=== PATIENT | female | born 1970 | race Caucasian/White ===

== ENCOUNTER → 2016-08-10 | Outpatient (CLI) | payer BC ==
[~2016-08-10] MED LIST: ASPI81TA28 PO; CHOL100010 PO; CRAN1TAB PO; DILTIAZEM PO; INSPMPHMLG; LEVO1TAB PO; LISI-729 PO; MAGN400T6 PO; METF1TAB53 PO; MULT-506 PO; OLME1TAB11 PO; OMEG10007 PO; PRAV20TA PO
--- NOTE | 2016-08-11 13:31 | MAMMOGRAPHY REPORT ---
BILATERAL DIGITAL SCREENING MAMMOGRAM TOMOSYNTHESIS WITH CAD: 08/10/2016 CLINICAL HISTORY: Routine screening. Patient has no complaints. TECHNIQUE: Breast tomosynthesis in addition to standard 2D mammography was performed. Current study was also evaluated with a Computer Aided Detection (CAD) system. COMPARISON: Comparison is made to exams dated: 08/03/2015 mammogram, 07/01/2014 mammogram, and 013 mammogram - [facility]. BREAST COMPOSITION: There are scattered areas of fibroglandular density in both breasts. FINDINGS: No suspicious masses, calcifications, or areas of architectural distortion are noted in e ither breast. There has been no significant interval change compared to prior exams. IMPRESSION: ACR BI-RADS CATEGORY 1: NEGATIVE There is no mammographic evidence of malignancy. A 1 year screening mammogram is recommended. The p atient will receive written notification of the results. Approximately 10% of breast cancers are not detected with mammography. A negative mammographic repor t should not delay biopsy if a clinically suggestive mass is present. Gloria Minor M.D. ah/:08/10/2016 16:26:01 Data Analytics Specialist: Mey LEWIS(Cristhian)(M)(BD), [facility] letter sent: Normal /2 BI-RADS Code: ACR BI-RADS Category 1: Negative
== END | disposition home or self-care (01) ==
LOC: C.MAMM 16:00
PROVIDERS: ATTEND Nurse Practitioner Family
DX: Z12.31 Encounter for screening mammogram for malignant neoplasm of breast (principal)

== ENCOUNTER → 2016-08-31 | Outpatient (CLI) | payer BC ==
[~2016-08-31] MED LIST changes: +CHOL1000 PO; +DILT120C68 PO; +LEVO137T3 PO; +ROSU5TAB PO; +SERT50TA PO; +UBIQ100C PO
== END | disposition home or self-care (01) ==
LOC: C.PAPS 11:13
PROVIDERS: ATTEND Physician Assistant
DX: Z01.419 Encounter for gynecological examination (general) (routine) without abnormal findings (principal)

== ENCOUNTER → 2017-05-15 | Day surgery (SDC) | payer BC ==
[2017-04-19 11:55] VITALS: Ht 170.2 cm; Wt 97.7 kg
[~2017-05-15] VITALS: Ht 170.2 cm; Wt 97.7 kg
[~2017-05-15] MED LIST changes: +ATROPINE SULFATE 0.1 MG/ML 5ML SYR IV PRN; +BUPIVACAINE 0.5 % 5 MG/1 ML PF 10ML VIAL ONE; +CEFAZOLIN 2000MG IV PUSH 10 ML IV SCH; -CHOL100010 PO; -CRAN1TAB PO; -DILTIAZEM PO; +EpHEDrine SULFATE INJ 50 MG/ML AMP IV PRN; +FENTANYL CITRATE INJ 50 MCG/1 ML 2 ML VIAL IV PRN; +FENTANYL CITRATE INJ 50 MCG/1 ML 2 ML VIAL ONE; +LACTATED RINGER'S 1000ML 1,000 ML IV SCH; -LEVO1TAB PO; +LIDOCAINE HCL 1% 20 ML VIAL ONE; +LIDOCAINE HCL 2% 2 ML VIAL (20MG/ML) ONE; -LISI-729 PO; +MIDAZOLAM HCL 1 MG/ML 2ML VIAL ONE; -OMEG10007 PO; +ONDANSETRON INJ 2 MG/ML 2 ML VIAL IV PRN; +OXYCODONE/ACETAMINOPHEN 5-325 TAB PO PRN; -PRAV20TA PO; +PROMETHAZINE HCL INJ 6.25 MG in SODIUM CHLORIDE 0.9% 50ML 50 ML IV PRN; +PROPOFOL IV EMULSION 10 MG/ML 20 ML VIAL IV ONE; +SODIUM CHLORIDE 0.9% 1000ML 1,000 ML IV SCH; +TRAM-10 PO
--- NOTE | 2017-05-15 06:45 | History & Physical Bridge - SC ---
H&P Re-Evaluation Bridge Note: I have examined the patient, reviewed the History & Physical and in the interval since the performance of the History & Physical I have noted the following changes of clinical significance: No changes noted
--- NOTE | 2017-05-15 07:14 | [facility] Post Operative Brief Note ---
Immediate Operative Summary Operative Date May 15, 2017. Pre-Operative Diagnosis Left Index and Long Trigger Fingers Post-Operative Diagnosis Same Procedure(s) Performed Left Index And Long Fingers Trigger Fingers Release Surgeon Dr. Watt Safe Technician Surgeon(s) Richard Branch PA-C Estimated Blood Loss 0ml Findings ABOVE Specimens None Anesthesia LOCAL IV SEDATION Complication(s) None Disposition
[2017-05-15 07:16] VITALS: TEMP 36.7
--- NOTE | 2017-05-15 07:18 | Discharge Instructions-SurgCtr ---
Discharge Instructions Date of Service May 15, 2017. Visit Reason for Visit: Left Index And Long Trigger Fingers Discharge Discharge Diagnosis / Problem: SAME ABOVE Discharge Goals Goal(s): Decrease discomfort, Improve function Medications Stopped Medications Name(s): Aspirin and Metformin stopped 05/10 Activity Recommendations Activity Limitations: as noted below Lifting Limitations: gradually increase as tolerated Exercise/Sports Limitations: until after follow-up appointment Shower/Bathe: tomorrow Anesthesia . Post Anesthesia Instructions: If you have had General Anesthesia or IV Sedation: * Do not drive today. * Resume driving when surgeon permits. * Do not make important decisions or sign legal documents today. * Call surgeon for: 1. Temperature elevations greater than 101 degrees F. 2. Uncontrollable pain. 3. Excessive bleeding. 4. Persistent nausea and vomiting. 5. Medication intolerance (nausea, vomiting or rash). * For nausea and vomiting use only clear liquids such as: tea, soda, bouillon until nausea subsides, then gradually increase diet as tolerated. * If you have any concerns or questions, call your surgeon's office. If physician is unavailable and it is an emergency, call 911 or go to the nearest emergency room. . Diet Recommendations Home Diet: resume previous diet Procedures Procedures Performed: Left Index And Long Fingers Trigger Fingers Release Pending Studies Studies pending at discharge: no Medical Emergencies . Who to Call and When: Medical Emergencies: If at any time you feel your situation is an emergency, please call 911 immediately. . Non-Emergent Contact Non-Emergency issues call your: Primary Care Provider . . "Provider Documentation" section prepared by Deric Branch. .
--- NOTE | 2017-05-15 07:33 | OPERATIVE REPORT ---
DATE OF OPERATION: 05/15/2017 PREOPERATIVE DIAGNOSIS: Left index and long trigger finger. POSTOPERATIVE DIAGNOSIS: Same. PROCEDURE: Release A1 pulleys left index and long fingers. SURGEON: Lane Watt MD. NURSE INFECTION CONTROL: Deric Branch PA-C. ANESTHESIOLOGIST: Deric Dennison MD. ANESTHESIA: Local with IV sedation. DRAINS: None. COMPLICATIONS: None. CONDITION: The patient tolerated the procedure well and returned to the recovery room in apparent satisfactory condition. INDICATIONS FOR SURGERY: Dalila is a 46-year-old female with triggering of left index, long fingers on conservative care. We went over treatment options and elected to go ahead and proceed with surgery. Procedure, expected outcomes and side effects, and risks were all explained in detail. DESCRIPTION OF PROCEDURE: The patient was taken to the OR at which time she was placed supine on the operating table, given IV sedation by the anesthesia department. Left hand was prepped and draped in usual sterile fashion for surgery. We infiltrated the anticipated incision sites on the index and long fingers over the A1 jagdeep with 1% Xylocaine and put a forearm tourniquet up to 250 mmHg. Using loupe magnification, we made transverse incisions over both pulleys A1 jagdeep was dissected down with tenotomy scissors and divided the A1 jagdeep with an 11 blade and tenotomy scissors. Each finger was taken through a range of motion of longer triggering. Each wound was irrigated and closed with interrupted 4-0 nylon sutures. Marcaine without epinephrine was placed in skin edges. Placed a sterile dressing of Xeroform, 4 x 4, soft roll and Coban and returned back to recovery room in apparent satisfactory condition. I attest to the content of the Intraoperative Record and any orders documented therein. Any exception s are noted below.
[2017-05-15 07:45] VITALS: BP 119/73; O2SAT 94
--- NOTE | 2017-05-15 07:45 | Discharge Instructions-SurgCtr ---
Discharge Instructions Date of Service May 15, 2017. Visit Reason for Visit: Left Index And Long Trigger Fingers Discharge Discharge Diagnosis / Problem: SAME ABOVE Discharge Goals Goal(s): Decrease discomfort, Improve function Medications Stopped Medications Name(s): Aspirin and Metformin stopped 05/10 Activity Recommendations Activity Limitations: as noted below Lifting Limitations: gradually increase as tolerated Exercise/Sports Limitations: until after follow-up appointment Shower/Bathe: tomorrow Anesthesia . Post Anesthesia Instructions: If you have had General Anesthesia or IV Sedation: * Do not drive today. * Resume driving when surgeon permits. * Do not make important decisions or sign legal documents today. * Call surgeon for: 1. Temperature elevations greater than 101 degrees F. 2. Uncontrollable pain. 3. Excessive bleeding. 4. Persistent nausea and vomiting. 5. Medication intolerance (nausea, vomiting or rash). * For nausea and vomiting use only clear liquids such as: tea, soda, bouillon until nausea subsides, then gradually increase diet as tolerated. * If you have any concerns or questions, call your surgeon's office. If physician is unavailable and it is an emergency, call 911 or go to the nearest emergency room. . Instructions / Follow-Up Instructions / Follow-Up MEDICATIONS: * Resume previous medications unless instructed otherwise by your surgeon. * Always take pain medication on a full stomach or with food to avoid upset stomach. * Do not drink alcohol or drive while taking narcotics. * Ibuprofen or Tylenol may be taken if narcotic not needed. SPECIAL CARE INSTRUCTIONS: __ None _X_ Keep extremity elevated and iced x 48 hours; apply ice 20-30 minutes 8-10 times/day. May remove at night. __ Sling __24 hrs/day __ Remove at night __ Shoulder Immobilizer __ 24 hrs/day __ Remove at night _X_ Dressing __ Maintain until seen in office, may shower with plastic over site _X_ Remove dressings in 24-48 hours and then may shower _X_ Cover incisions with band-aids after showering __ Do not remove steri-strips Call physician if chills or temperature rises above 102 degrees or pain unrelieved by prescribed pain medications at . . Diet Recommendations Home Diet: no limitations Procedures Procedures Performed: Left Index And Long Fingers Trigger Fingers Release Pending Studies Studies pending at discharge: no Medical Emergencies . Who to Call and When: Medical Emergencies: If at any time you feel your situation is an emergency, please call 911 immediately. . Non-Emergent Contact Non-Emergency issues call your: Primary Care Provider . . "Provider Documentation" section prepared by Deric Branch. .
--- NOTE | 2017-05-15 07:47 | Anesthesia Progress Nt - [facility] ---
Anesthesia Post Op Note Date & Time May 15, 2017 at 07:47 Vital Signs Pain Intensity: 0 Vital Signs Past 12 Hours Date Time Temp Pulse Resp B/P (MAP) Pulse Ox O2 Delivery O2 Flow Rate FiO2 05/15/17 07:45 16 119/73 (88) 94 Room Air 05/15/17 07:16 36.7 86 16 127/84 (98) 98 Room Air 05/15/17 06:28 36.7 86 16 127/84 (98) 98 Room Air Notes Mental Status: alert / awake / arousable, participated in evaluation Pt Amnestic to Procedure: Yes Nausea / Vomiting: adequately controlled Pain: adequately controlled Airway Patency, RR, SpO2: stable & adequate BP & HR: stable & adequate Hydration State: stable & adequate Anesthetic Complications: no major complications apparent
== END | disposition home or self-care (01) ==
LOC: X.SURG 06:09
PROVIDERS: ATTEND Orthopaedic Surgery
DX: M65.322 Trigger finger, left index finger (principal); M65.332 Trigger finger, left middle finger; Z90.710 Acquired absence of both cervix and uterus; E10.9 Type 1 diabetes mellitus without complications; E03.9 Hypothyroidism, unspecified; I10 Essential (primary) hypertension; E78.00 Pure hypercholesterolemia, unspecified; Z79.4 Long term (current) use of insulin; K21.9 Gastro-esophageal reflux disease without esophagitis; Z79.82 Long term (current) use of aspirin; Z90.722 Acquired absence of ovaries, bilateral; M19.90 Unspecified osteoarthritis, unspecified site; R00.0 Tachycardia, unspecified; F41.9 Anxiety disorder, unspecified

== ENCOUNTER → 2017-08-14 | Outpatient (CLI) | payer BC ==
[~2017-08-14] MED LIST changes: -ATROPINE SULFATE 0.1 MG/ML 5ML SYR IV PRN; +BNC/20 PO; -BUPIVACAINE 0.5 % 5 MG/1 ML PF 10ML VIAL ONE; -CEFAZOLIN 2000MG IV PUSH 10 ML IV SCH; -EpHEDrine SULFATE INJ 50 MG/ML AMP IV PRN; -FENTANYL CITRATE INJ 50 MCG/1 ML 2 ML VIAL IV PRN; -FENTANYL CITRATE INJ 50 MCG/1 ML 2 ML VIAL ONE; -LACTATED RINGER'S 1000ML 1,000 ML IV SCH; -LIDOCAINE HCL 1% 20 ML VIAL ONE; -LIDOCAINE HCL 2% 2 ML VIAL (20MG/ML) ONE; -MIDAZOLAM HCL 1 MG/ML 2ML VIAL ONE; -OLME1TAB11 PO; -ONDANSETRON INJ 2 MG/ML 2 ML VIAL IV PRN; -OXYCODONE/ACETAMINOPHEN 5-325 TAB PO PRN; -PROMETHAZINE HCL INJ 6.25 MG in SODIUM CHLORIDE 0.9% 50ML 50 ML IV PRN; -PROPOFOL IV EMULSION 10 MG/ML 20 ML VIAL IV ONE; -SODIUM CHLORIDE 0.9% 1000ML 1,000 ML IV SCH
--- NOTE | 2017-08-15 15:36 | MAMMOGRAPHY REPORT ---
BILATERAL DIGITAL SCREENING MAMMOGRAM TOMOSYNTHESIS WITH CAD: 08/14/2017 CLINICAL HISTORY: Routine screening. Patient has no complaints. TECHNIQUE: Breast tomosynthesis in addition to standard 2D mammography was performed. Current study was also evaluated with a Computer Aided Detection (CAD) system. COMPARISON: Comparison is made to exams dated: 08/10/2016 mammogram, 08/03/2015 mammogram, 07/01/2014 [facility] mogram, 04/23/2013 mammogram - [facility], and [facility] BREAST COMPOSITION: There are scattered areas of fibroglandular density in both breasts. FINDINGS: The parenchymal pattern is unchanged. No developing mass, architectural distortion or clus ter of suspicious microcalcifications is seen in either breast. IMPRESSION: ACR BI-RADS CATEGORY 2: BENIGN There is no mammographic evidence of malignancy. A 1 year screening mammogram is recommended. The pa tient will receive written notification of the results. Approximately 10% of breast cancers are not detected with mammography. A negative mammographic report should not delay biopsy if a clinically suggestive mass is present. Sabine Dhillon M.D. ay/:08/14/2017 16:59:04 Admittance Attendant: Reina LEWIS(Cristhian)(M), [facility] letter sent: Normal 1/2 BI-RADS Code: ACR BI-RADS Category 2: Benign
== END | disposition home or self-care (01) ==
LOC: C.MAMM 16:09
PROVIDERS: ATTEND Nurse Practitioner Family
DX: Z12.31 Encounter for screening mammogram for malignant neoplasm of breast (principal)

== ENCOUNTER 2017-10-11 04:18 | Emergency (ER) | payer BC ==
[~2017-10-11] VITALS: Ht 167.6 cm; Wt 98.0 kg
[2017-10-11 04:20] VITALS: TEMP 36.7; Ht 167.6 cm; Wt 98.0 kg
[2017-10-11] MEDS ORDERED: SODIUM CHLORIDE 0.9% 1000ML 1,000 ML IV STA (04:29)
[2017-10-11 04:38] LABS: BASO % 0.1 %; BASO ABS # 0.01 K/uL (0-0.2); EOS % 2.2 %; EOS ABS # 0.15 K/uL (0-0.5); HEMATOCRIT 42.1 % (37-47); HEMOGLOBIN 13.9 g/dL (12.0-16.0); IG# 0.02 K/uL (0.00-0.02); MEAN CELL VOLUME 85.7 fL (80-100); MEAN CORPUSCULAR HEMOGLOBIN 28.3 pg (25-34); MEAN PLATELET VOLUME 10.3 fL (7.4-10.4); MONO % 7.5 %; MONO ABS # 0.52 K/uL (0.11-0.59); NEUT % 60.9 %; NEUT ABS # 4.19 K/uL (1.4-6.5); PLATELET COUNT 310 K/uL (130-400); RED CELL DISTRIBUTION WIDTH SD 40.8 fL (36.4-46.3); WHITE BLOOD COUNT 6.89 K/uL (4.8-10.8)
--- NOTE | 2017-10-11 04:38 | EMERGENCY ROOM VISIT NOTE ---
History Report prepared by Jerri: Alta Lees Under the Supervision of: Dr. Gregorio Perez M.D. First contact with patient: 04:22 Chief Complaint: PALPITATIONS Stated Complaint: PALPITATIONS Nursing Triage Summary: 0300 woke up with shortness of breath and palpitations History of Present Illness The patient is a 47 year old female who presents to the Emergency Room with complaints of resolved heart palpitations that started an hour and a half ago. The patient states "my heart felt like it was trying to leave my body, it was beating really fast." She reports she was unable to get a full breath but denies any shortness of breath. Per EMS, the patient was hypertensive on arrival. The patient reports she had one episode of tachycardia 4 years ago during her hysterectomy. She denies chest pain, calf pain, leg swelling, abdominal pain, diarrhea, or urine symptoms. The patient has type I diabetes, thyroid issues, and magnesium issues. She reports she has no history of DKA, blood clots, fluid on lungs, or kidney failure. 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 She also denies any change in exercise. Source of History: patient Onset: hour and a half ago Position: other (heart) Timing: resolved Associated Symptoms: No chest pain, No SOB, No diarrhea, No urinary symptoms Note: Denies calf pain or leg swelling. Review of Systems See HPI for pertinent positives & negatives. A total of 10 systems reviewed and were otherwise negative. Past Medical & Surgical Hysterectomy. Family History No pertinent family history Social History Smoking Status: Never Smoker Smokeless Tobacco Use: No Drug Use: none Occupation Status: employed Current/Historical Medications Scheduled Aspirin (Aspirin Ec), 81 MG PO QAM Cholecalciferol (Vitamin D3), 1 TAB PO BID Cranberry (Vaccinium Macrocarp (Cranberry), 2 CAP PO DAILY Diltiazem Hcl Ext Rel (Tiazac), 120 MG PO QAM Fish Oil ([place]-3), 1,200 MG PO BID Insulin Human Lispro (Insulin Humalog Pump ), 1 EA N/A UD Levothyroxine Sodium (Levothyroxine Sodium), 1 TAB PO 6XWK Magnesium Oxide (Mag-Ox), 400 MG PO HS Metformin Hcl Er (Glucophage Er), 500 MG PO BID Multivitamin (Multivitamin), 1 TAB PO DAILY Olmesartan Medoxomil (Benicar), 20 MG PO HS Ranitidine (Zantac), 150 MG PO DAILY Rosuvastatin Calcium (Crestor), 5 MG PO HS Sertraline Hcl (Zoloft), 75 MG PO QAM Scheduled PRN Glucagon (Glucagon Emergency Kit), 1 MG SQ DIRECTED PRN for low bg Allergies Coded Allergies: Codeine (Verified Allergy, Unknown, UNCONTROLABLE BLOOD SUGARS, 10/11/17) Cortisone (Verified Allergy, Unknown, uncontrolled blood sugars, 10/11/17) Irbesartan (Verified Allergy, Unknown, swelling, 10/11/17) Lisinopril (Verified Allergy, Unknown, cough, 10/11/17) Nitrofurantoin (Verified Allergy, Unknown, nausea, 10/11/17) Uncoded Allergies: ABSORBABLE SUTURES (Allergy, Unknown, SKIN NECROSIS, 02/17/16) Physical Exam Vital Signs Date Time Temp Pulse Resp B/P (MAP) Pulse Ox O2 Delivery O2 Flow Rate FiO2 10/11/17 06:02 101 18 162/95 98 Room Air 10/11/17 04:24 109 10/11/17 04:20 36.7 109 18 163/73 98 Room Air 10/11/17 04:20 97 Room Air Physical Exam GENERAL: Patient is well appearing and in no acute distress. EYES: No scleral icterus, unremarkable pupils. ENT: Mucous membranes moist, no nasal congestion. NECK: No masses appreciated, no meningismus, trachea is midline. RESPIRATORY: No dyspnea. Clear to auscultation and equal bilaterally. No wheeze , no rhonchi. CARDIOVASCULAR: Mild tachycardia. No murmurs, rubs, gallops appreciated. GASTROINTESTINAL: Abdomen soft, nontender, no peritonitis. Bowel sounds positive. No masses appreciated. BACK: No midline tenderness, no CVA tenderness EXTREMITIES: Normal motion all extremities, no cyanosis, no edema. NEUROLOGIC: Alert and oriented, no acute motor or sensory deficits, no focal weakness, cranial nerves grossly intact. SKIN: No rash, no jaundice, no diaphoresis. Medical Decision & Procedures ER Provider Diagnostic Interpretation: X ray results are stated below per my interpretation: Chest: 1 view: No infiltrate, no effusion, normal cardiac border. Laboratory Results 10/11/17 04:26 Red Blood Count 4.91, Mean Corpuscular Volume 85.7, Mean Corpuscular Hemoglobin 28.3, Mean Corpuscular Hemoglobin Concent 33.0, Mean Platelet Volume 10.3, Neutrophils (%) (Auto) 60.9, Lymphocytes (%) (Auto) 29.0, Monocytes (%) (Auto) 7.5, Eosinophils (%) (Auto) 2.2, Basophils (%) (Auto) 0.1, Neutrophils # (Auto) 4.19, Lymphocytes # (Auto) 2.00, Monocytes # (Auto) 0.52, Eosinophils # (Auto) 0.15, Basophils # (Auto) 0.01 10/11/17 04:26 10/11/17 05:38 Test 10/11/17 04:26 10/11/17 05:00 10/11/17 05:38 White Blood Count 6.89 K/uL (4.8-10.8) Red Blood Count 4.91 M/uL (4.2-5.4) Hemoglobin 13.9 g/dL (12.0-16.0) Hematocrit 42.1 % (37-47) Mean Corpuscular Volume 85.7 fL (80-100) Mean Corpuscular Hemoglobin 28.3 pg (25-34) Mean Corpuscular Hemoglobin Concent 33.0 g/dl (32-36) Platelet Count 310 K/uL (130-400) Mean Platelet Volume 10.3 fL (7.4-10.4) Neutrophils (%) (Auto) 60.9 % Lymphocytes (%) (Auto) 29.0 % Monocytes (%) (Auto) 7.5 % Eosinophils (%) (Auto) 2.2 % Basophils (%) (Auto) 0.1 % Neutrophils # (Auto) 4.19 K/uL (1.4-6.5) Lymphocytes # (Auto) 2.00 K/uL (1.2-3.4) Monocytes # (Auto) 0.52 K/uL (0.11-0.59) Eosinophils # (Auto) 0.15 K/uL (0-0.5) Basophils # (Auto) 0.01 K/uL (0-0.2) RDW Standard Deviation 40.8 fL (36.4-46.3) RDW Coefficient of Variation 13.0 % (11.5-14.5) Immature Granulocyte % (Auto) 0.3 % Immature Granulocyte # (Auto) 0.02 K/uL (0.00-0.02) Anion Gap 4.0 mmol/L (3-11) Est Creatinine Clear Calc Drug Dose 75.1 ml/min Estimated GFR () 70.6 Estimated GFR (Non- 60.9 BUN/Creatinine Ratio 17.5 (10-20) Calcium Level 8.7 mg/dl (8.5-10.1) Troponin I < 0.015 ng/ml (0-0.045) Thyroid Stimulating Hormone (TSH) 2.700 uIu/ml (0.300-4.500) Urine Color YELLOW Urine Appearance CLEAR (CLEAR) Urine pH 7.0 (4.5-7.5) Urine Specific [place] 1.012 (1.000-1.030) Urine Protein 1+ (NEG) Urine Glucose (UA) 2+ (NEG) Urine Ketones NEG (NEG) Urine Occult Blood NEG (NEG) Urine Nitrite NEG (NEG) Urine Bilirubin NEG (NEG) Urine Urobilinogen NEG (NEG) Urine Leukocyte Esterase NEG (NEG) Urine WBC (Auto) 1-5 /hpf (0-5) Urine RBC (Auto) 0-4 /hpf (0-4) Urine Hyaline Casts (Auto) 0 /lpf (0-5) Urine Epithelial Cells (Auto) 10-20 /lpf (0-5) Urine Bacteria (Auto) NEG (NEG) Magnesium Level 2.0 mg/dl (1.8-2.4) Laboratory results as reviewed by me. Medications Administered Medications (Trade) Dose Ordered Sig/Shae Route Start Time Stop Time Status Last Admin Dose Admin Sodium Chloride 1,000 ml @ 999 mls/hr Q1H1M STAT IV 10/11/17 04:29 10/11/17 05:29 DC 10/11/17 04:35 999 MLS/HR ECG Per My Interpretation Indication: tachycardia Rate (beats per minute): 109 Rhythm: sinus tachycardia Findings: no acute ischemic change, no ectopy, other (QTC 439) ED Course 0425: The patient was evaluated in room B3B. A complete history and physical exam was performed. 0510: I reevaluated the patient and she states she feels fine. Her heart rate is right around 100. She states she usually takes Cardizem around 6 am. 0535: I reevaluated the patient and she states she is feeling well. 0615: I reevaluated the patient and she is feeling fine. She is requesting to go home and that I order her morning Zoloft and Cardizem. The patient is ready for discharge. Medical Decision Differential: NSR, SVT, PACs, PVCs, Cardiac Dysrhythmia, Endocrine Dysfunction, Electrolyte/Metabolic Abnormality, Pulmonary Embolism, Infectious, GI, amonst other pathologies entertained. 47 yr old female with episode of tachycardia that awoke her from sleep and lasted long evnough until EMS arrived. Mild tachy on arrival but without symptoms. States feeling fine. Exam benign. Labs look good other than hyperglycemia which she acknowledges is not very uncommon for her (A1C 7.9). Fluids given likely will drop BSG a bit and she will take her regular Insulin regimen. Mag, K, TSH wnl. Trop negative. EKG unremarkable other than mild tachy. CXR clear. Monitored for 2 hours with nor significant tachycardia. No evidence this is ACS, PE, Dissection. She plans to go home and take her Cardizem. Reviewed symptoms requiring RTED. Stable and feeling well at discharge. Medication Reconcilliation Current Medication List: was personally reviewed by me Blood Pressure Screening Patient's blood pressure: Elevated blood pressure Blood pressure disposition: Referred to PCP Impression Primary Impression: Rapid palpitations Scribe Attestation The scribe's documentation has been prepared under my direction and personally reviewed by me in its entirety. I confirm that the note above accurately reflects all work, treatment, procedures, and medical decision making performed by me. Departure Information Dispostion Home / Self-Care Referrals Nicole Rodriguez (PCP) Patient Instructions ED Palpitations, My [facility]
[2017-10-11] MEDS ORDERED: CRANPOW PO (04:43)
[2017-10-11] MEDS ORDERED: GLGKIT SQ (04:45)
[2017-10-11] MEDS ORDERED: METF500T5 PO (04:49)
[2017-10-11] MEDS ORDERED: RANI150T85 PO (04:52)
[2017-10-11] MEDS ORDERED: OMEG10007 PO (04:52)
[2017-10-11 05:21] LABS: BLOOD UREA NITROGEN 19 mg/dl (7-18); CALCIUM 8.7 mg/dl (8.5-10.1); CARBON DIOXIDE 27 mmol/L (21-32); CREATININE 1.07 mg/dl (0.60-1.20); GLUCOSE 252 mg/dl (70-99); SODIUM 138 mmol/L (136-145)
[2017-10-11 05:58] LABS: POTASSIUM 3.8 mmol/L (3.5-5.1)
[2017-10-11 06:02] VITALS: BP 162/95; PULSE 101; O2SAT 98
[2017-10-11] MEDS ORDERED: SERTRALINE HCL 50 MG TAB PO ONE (06:15)
[2017-10-11] MEDS ORDERED: DILTIAZEM HCL 120 MG ER CAP PO STA (06:15)
--- NOTE | 2017-10-11 06:41 | DIAGNOSTIC IMAGING REPORT ---
CHEST ONE VIEW PORTABLE CLINICAL HISTORY: Palpitations cardiac arrhythmia COMPARISON STUDY: No previous studies for comparison. FINDINGS: The bones soft tissues and hemidiaphragms are normal. The cardiomediastinal silhouette is normal. The lungs are clear. The pulmonary vasculature is normal. IMPRESSION: Negative chest. The above report was generated using voice recognition software. It may contain grammatical, syntax or spelling errors. Electronically signed by: Preet Graham M.D. 10/11/2017 6:40 AM Dictated Date/Time: 10/11/2017 6:39 AM
== END 2017-10-11 06:25 | disposition home or self-care (01) ==
LOC: C.EDB 04:18 → EDBD 04:18 → C.EDB 06:25
DX: R00.2 Palpitations (principal); Z79.82 Long term (current) use of aspirin; Z79.899 Other long term (current) drug therapy; Z88.5 Allergy status to narcotic agent; Z88.8 Allergy status to other drugs, medicaments and biological substances; Z91.048 Other nonmedicinal substance allergy status